=== PATIENT | female | born 1970 | race African-American/Black ===

== ENCOUNTER 2016-05-15 19:44 | Emergency (ER) | payer OTHER ==
[2016-05-15 20:13] VITALS: BP 110/70; PULSE 74; TEMP 97.8; BMI 28.3
[2016-05-15] MEDS ORDERED: SODIUM CHLORIDE 1,000 ML IV STA (20:30)
[2016-05-15 20:38] LABS: URINE APPEARANCE CLEAR; URINE BILIRUBIN NEGATIVE (NEGATIVE); URINE BLOOD NEGATIVE (NEGATIVE); URINE COLOR STRAW; URINE GLUCOSE (UA) NEGATIVE (NEGATIVE); URINE KETONE NEGATIVE (NEGATIVE); URINE NITRITE NEGATIVE (NEGATIVE); URINE PROTEIN NEGATIVE (NEGATIVE); URINE UROBILINOGEN NEGATIVE E.U./dl (0.2-1.0)
[2016-05-15 20:39] LABS: URINE LEUK ESTERASE 2+ (NEGATIVE)
--- NOTE | 2016-05-15 20:39 | PDOC ---
History of Present Illness - General History Source: Patient Exam Limitations: No Limitations - History of Present Illness Initial Comments: 05/15/16 21:04 The patient is a 45 year old female, with no significant past medical history, who presents to the emergency department with intermittent LLQ abdominal pain for the past 4 days. The patient describes the pain as a nonradiating pressure. She states that she started her menstrual period 4 days ago and initially thought her abdominal pain was related. However, she ended her menstrual period 2 days ago but the abdominal pain has persisted. She then thought the abdominal pain was related to gas pains, so she took a laxative 2 days ago but the pain has persisted. The patient denies fever, chills, nausea, vomiting, diarrhea or dysuria. She reports normal bowel movements. Patients daughter is with her in the ED. LMP: 05/11/2016 Allergies: None reported. Past Surgical History: . Social History: Non smoker. Denies alcohol or drug use. PCP: Dr. Moustapha Petit <Juanita Phillips - Last Filed: 05/15/16 23:21> - General History Source: Patient Exam Limitations: No Limitations <Devon Perez - Last Filed: 05/16/16 00:28> - General Chief Complaint: Pain Stated Complaint: ABD PAIN Time Seen by Provider: 05/15/16 20:19 Past History <Juanita Phillips - Last Filed: 05/15/16 23:21> - Psycho/Social/Smoking Cessation Hx Suicidal Ideation: No Smoking History: Never smoked <Devon Perez - Last Filed: 05/16/16 00:28> - Past Medical History Allergies/Adverse Reactions: Allergies Allergy/AdvReac Type Severity Reaction Status Date / Time No Known Allergies Allergy Verified 05/15/16 20:09 Home Medications: Ambulatory Orders NK [No Known Home Medication] 05/15/16 Review of Systems - Review of Systems Able to Perform ROS?: Yes Comments:: 05/15/16 20:54 GENERAL/CONSTITUTIONAL: No fever or chills. No weakness. HEAD, EYES, EARS, NOSE AND THROAT: No change in vision. No ear pain or discharge. No sore throat. CARDIOVASCULAR: No chest pain or shortness of breath. RESPIRATORY: No cough, wheezing, or hemoptysis. GASTROINTESTINAL: +Abdominal pain. No nausea, vomiting, diarrhea or constipation. GENITOURINARY: No dysuria, frequency, or change in urination. MUSCULOSKELETAL: No joint or muscle swelling or pain. No neck or back pain. SKIN: No rash. NEUROLOGIC: No headache, vertigo, loss of consciousness, or change in strength/ sensation. ENDOCRINE: No increased thirst. No abnormal weight change. HEMATOLOGIC/LYMPHATIC: No anemia, easy bleeding, or history of blood clots. ALLERGIC/IMMUNOLOGIC: No hives or skin allergy. <Juanita Phillips - Last Filed: 05/15/16 23:21> *Physical Exam - Vital Signs Last Vital Signs Temp Pulse Resp BP Pulse Ox 97.8 F 74 18 110/70 100 05/15/16 20:12 05/15/16 20:12 05/15/16 20:12 05/15/16 20:12 05/15/16 20:12 - Physical Exam Comments: 05/15/16 20:52 GENERAL: Awake, alert, and fully oriented, in no acute distress. HEAD: No signs of trauma. EYES: PERRLA, EOMI, sclera anicteric, conjunctiva clear. ENT: Auricles normal inspection, hearing grossly normal, nares patent, oropharynx clear without exudates. Moist mucosa. NECK: Normal ROM, supple, no lymphadenopathy, JVD, or masses. LUNGS: Breath sounds equal, clear to auscultation bilaterally. No wheezes, and no crackles. HEART: Regular rate and rhythm, normal S1 and S2, no murmurs, rubs or gallops. ABDOMEN: LLQ tenderness on palpation. Soft, normoactive bowel sounds. No guarding, no rebound. No masses. EXTREMITIES: Normal range of motion, no edema. No clubbing or cyanosis. No cords , erythema, or tenderness. NEUROLOGICAL: Cranial nerves II through XII grossly intact. Normal speech, normal gait. SKIN: Warm, dry, normal turgor, no rashes or lesions noted. <Juanita Phillips - Last Filed: 05/15/16 23:21> - Vital Signs Last Vital Signs Temp Pulse Resp BP Pulse Ox 97.8 F 74 18 110/70 100 05/15/16 20:12 05/15/16 20:12 05/15/16 20:12 05/15/16 20:12 05/15/16 20:12 <Devon Perez - Last Filed: 05/16/16 00:28> ED Treatment Course - LABORATORY CBC & Chemistry Diagram: 05/15/16 20:46 05/15/16 20:46 - ADDITIONAL ORDERS Additional order review: Laboratory Results 05/15/16 20:14 Urine Color Straw Urine Appearance Clear Urine pH 6.0 Ur Specific [place] 1.011 Urine Protein Negative Urine Glucose (UA) Negative Urine Ketones Negative Urine Blood Negative Urine Nitrite Negative Urine Bilirubin Negative Urine Urobilinogen Negative Ur Leukocyte Esterase 2+ H Urine RBC 2 Urine WBC 12 Ur Epithelial Cells Moderate Urine Bacteria Rare Urine Mucus Rare Urine HCG, Qual Negative <Juanita Phillips - Last Filed: 05/15/16 23:21> - LABORATORY CBC & Chemistry Diagram: 05/15/16 20:46 05/15/16 20:46 - RADIOLOGY Radiology Studies Ordered: Category Date Time Status ABDOMEN & PELVIS CT WITH CONTR [CT] Stat CT Scan 05/15/16 20:29 Ordered TRANSVAGINAL ULTRASOUND US [US] Stat Ultrasound 05/15/16 20:29 Ordered <Devon Perez - Last Filed: 05/16/16 00:28> Medical Decision Making - Medical Decision Making 05/15/16 23:04 EXAM: US/TRANSVAGINAL ULTRASOUND US Reviewed By: Dr. Julio Cesar Morin IMPRESSION: Small uterine fibroid and right ovarian cyst. No evidence of torsion or acute pathology. EXAM: CT/ABDOMEN & PELVIS CT WITH CONTR Reviewed By: Dr. Julio Cesar Morin IMPRESSION: Cholelithiasis, otherwise normal CT scan of the abdomen and pelvis with no evidence of diverticulitis or acute pathology. <Juanita Phillips - Last Filed: 05/15/16 23:21> - Medical Decision Making 05/15/16 20:37 A portion of this note was documented by scribe services under my direction. I have reviewed the details of the note, within reason, and agree with the documentation with the following case summary and management plan written by me. Patient treated in the ED. Nursing notes are reviewed and incorporated into the medical decision-making. Vital signs reviewed. Peripheral IV access obtained by the nurse, laboratory studies are drawn and sent, reviewed and interpreted by myself. Vital Signs Temp Pulse Resp BP Pulse Ox 97.8 F 74 18 110/70 100 05/15/16 20:12 05/15/16 20:12 05/15/16 20:12 05/15/16 20:12 05/15/16 20:12 45 year old female with no past medical history presents with left lower quadrant pain. The patient has had intermittent lower abdominal pain for one week. She initially started with her menstrual period but her period now resolved. Denies any nausea, vomiting, diarrhea. Patient did take a laxative for what she thought was gassiness, and taken a laxative. However, no fevers no chills. She is quite tender left lower quadrant. Incidentally, yesterday, the patient had eaten some fried chicken and developed some epigastric burning sensation which was relieved with Tums. I suspect that that was gastritis. We'll obtain a CAT scan to rule out diverticulitis and a transvaginal ultrasound to rule out ruptured ovarian cyst. I have very low suspicion for ovarian torsion given presentation. We'll obtain labs and reassess. 05/16/16 00:17 CT scan demonstrated no acute findings. Incidental finding notable was gallstones. The patient was informed of her findings. CBC, BMP 05/15/16 20:46 05/15/16 20:46 CMP Sodium 141 mmol/L (136-145) 05/15/16 20:46 Potassium 3.7 mmol/L (3.5-5.1) 05/15/16 20:46 Chloride 104 mmol/L (98-107) 05/15/16 20:46 Carbon Dioxide 27 mmol/L (21-32) 05/15/16 20:46 Anion Gap 10 (8-16) 05/15/16 20:46 BUN 12 mg/dL (7-18) 05/15/16 20:46 Creatinine 0.8 mg/dL (0.55-1.02) 05/15/16 20:46 Creat Clearance w eGFR > 60 (>60) 05/15/16 20:46 Random Glucose 80 mg/dL (74-106) 05/15/16 20:46 Calcium 8.2 mg/dL (8.5-10.1) L 05/15/16 20:46 Total Bilirubin 0.3 mg/dL (0.2-1.0) 05/15/16 20:46 AST 15 U/L (15-37) 05/15/16 20:46 ALT 16 U/L (12-78) 05/15/16 20:46 Alkaline Phosphatase 79 U/L (45-117) 05/15/16 20:46 Creatine Kinase 146 IU/L (26-192) 05/15/16 20:46 Troponin I < 0.02 ng/ml (0.00-0.05) 05/15/16 20:46 Total Protein 7.3 g/dl (6.4-8.2) 05/15/16 20:46 Albumin 3.5 g/dl (3.4-5.0) 05/15/16 20:46 Lipase 100 U/L (73-393) 05/15/16 20:46 Transvaginal ultrasound shows no torsion, but uterine fibroids, and R sided ovarian cyst. Patient given copies of her results. She reports feeling well and improved. Return precautions given. I suspect her pain was secondary to uterine fibroids. I discussed the physical exam findings, ancillary test results and final diagnoses with the patient. I answered all of the patient's questions. The patient was satisfied with the care received and felt comfortable with the discharge plan and treatment plan. The patient will call their primary care physician within 24 hours to arrange follow-up and will return to the Emergency Department with any new, persistant or worsening symptoms. <Devon Perez - Last Filed: 05/16/16 00:28> *DC/Admit/Observation/Transfer - Attestations Scribe Attestion: 05/15/16 20:52 Documentation prepared by Juanita Phillips, acting as medical information specialist for Devon Perez MD. <Juanita Phillips - Last Filed: 05/15/16 23:21> - Discharge Dispostion Admit: No <Devon Perez - Last Filed: 05/16/16 00:28> Diagnosis at time of Disposition: Fibroids Qualifiers: Uterine leiomyoma location: unspecified location Qualified Code(s): D25.9 - Leiomyoma of uterus, unspecified - Discharge Dispostion Disposition: HOME Condition at time of disposition: Improved - Referrals Referrals: Moustapha Petit MD [Primary Care Provider] - - Patient Instructions Printed Discharge Instructions: DI for Uterine Fibroids, Facts About Fibroids, DI for Ovarian Cyst Additional Instructions: Take 500 mg naproxen every 12 hours as needed for pain. Please take a copy of your ultrasound and CT scan to your doctors and ART HISTORIAN.
[2016-05-15 20:45] LABS: URINE BACTERIA RARE /hpf (NONE SEEN); URINE MUCUS RARE; URINE RBC 2 /hpf (0-3); URINE WBC 12 /hpf (3-5)
[2016-05-15 21:44] LABS: EOSINOPHIL 2.9 % (0-4.5); MCH 30.1 pg (25.7-33.7); MCHC 33.6 g/dl (32.0-36.0); MEAN CELL VOLUME 89.5 fl (80-96); MEAN PLT VOLUME 7.6 fl (7.5-11.1); NEUTROPHILS 49.1 % (42.8-82.8); PLATELET COUNT 290 K/MM3 (134-434); WHITE BLOOD COUNT 8.7 K/mm3 (4.0-10.0)
[2016-05-15 22:08] LABS: ALBUMIN 3.5 g/dl (3.4-5.0); ANION GAP 10 (8-16); BILIRUBIN,TOTAL 0.3 mg/dL (0.2-1.0); CALCIUM 8.2 mg/dL (8.5-10.1); CO2 27 mmol/L (21-32); CREATININE 0.8 mg/dL (0.55-1.02); GLUCOSE,RANDOM 80 mg/dL (74-106); SGOT/AST 15 U/L (15-37); SGPT/ALT 16 U/L (12-78); TOT PROT 7.3 g/dl (6.4-8.2)
[2016-05-15 22:11] LABS: ALK PHOS 79 U/L (45-117); TROPONIN I < 0.02 ng/ml (0.00-0.05)
== END 2016-05-16 00:29 | disposition home or self-care (01) ==
LOC: JER 19:44
PROC: 3E0337Z Introduction of Electrolytic and Water Balance Substance into Peripheral Vein, Percutaneous Approach (ICD-10-PCS; principal; 2016-05-15)
DX: D25.9 Leiomyoma of uterus, unspecified (principal); K80.20 Calculus of gallbladder without cholecystitis without obstruction
CPT/HCPCS: 36415; 74177-TC; 76830-TC; 80053; 81003; 81015; 82550; 83690; 84484; 84703; 85025; 99283-25

== ENCOUNTER 2017-08-01 10:04 | Inpatient (IN) | payer OTHER ==
--- NOTE | 2017-08-01 10:28 | PDOC ---
History of Present Illness - History of Present Illness Initial Comments: 08/01/17 11:01 Patient is a 47F, with no significant PMHx, who presents with nausea and vomiting since 07/30/17. Patient states that on Wednesday night she had [employer] and she began having abdominal cramping, followed by nausea and vomiting. She states that she has been vomiting (4-5x times) since and has not been able to hold anything down. She reports that her LMP was on June 19 but believes she is dominik-menopausal because she has irregular periods. Her last BM was yesterday and reports it as normal. She denies diarrhea, constipation. She denies fevers, chills. Surgical Hx: Social Hx: Denies tobacco use. Social EtOH. <Edith Paris - Last Filed: 08/01/17 12:46> <Lourdes Seals - Last Filed: 08/01/17 14:29> - General Chief Complaint: Nausea/Vomiting Stated Complaint: NAUSEA/VOMITING Time Seen by Provider: 08/01/17 10:18 Past History <Edith Paris - Last Filed: 08/01/17 12:46> - Past Medical History COPD: No - Suicide/Smoking/Psychosocial Hx Smoking History: Never smoked Have you smoked in the past 12 months: No Information on smoking cessation initiated: No Hx Alcohol Use: No Drug/Substance Use Hx: No Substance Use Type: None <Lourdes Seals - Last Filed: 08/01/17 14:29> - Past Medical History Allergies/Adverse Reactions: Allergies Allergy/AdvReac Type Severity Reaction Status Date / Time No Known Allergies Allergy Verified 05/15/16 20:09 Home Medications: Ambulatory Orders NK [No Known Home Medication] 05/15/16 Review of Systems - Review of Systems Comments:: 08/01/17 11:01 GENERAL/CONSTITUTIONAL: No fever or chills. No weakness. HEAD, EYES, EARS, NOSE AND THROAT: No change in vision. No ear pain or discharge. No sore throat. GASTROINTESTINAL: +nausea, +vomiting, no diarrhea or constipation. GENITOURINARY: No dysuria, frequency, or change in urination. CARDIOVASCULAR: No chest pain or shortness of breath. RESPIRATORY: No cough, wheezing, or hemoptysis. MUSCULOSKELETAL: No joint or muscle swelling or pain. No neck or back pain. SKIN: No rash NEUROLOGIC: No headache, vertigo, loss of consciousness, or change in strength/ sensation. ENDOCRINE: No increased thirst. No abnormal weight change. HEMATOLOGIC/LYMPHATIC: No anemia, easy bleeding, or history of blood clots. ALLERGIC/IMMUNOLOGIC: No hives or skin allergy. <Edith Paris - Last Filed: 08/01/17 12:46> *Physical Exam - Vital Signs Last Vital Signs Temp Pulse Resp BP Pulse Ox 98.2 F 82 16 113/76 100 08/01/17 10:10 08/01/17 10:10 08/01/17 10:10 08/01/17 10:10 08/01/17 10:10 - Physical Exam Comments: 08/01/17 11:02 Constitutional: Awake, alert, oriented. No acute distress. Head: Normocephalic. Atraumatic Eyes: PERRL. EOMI. Conjunctivae are not pale. ENT: Mucous membranes are mildy dry. Posterior pharynx without exudates or erythema. Uvula midline. Neck: Supple. Full ROM. No lymphadenopathy. Cardiovascular: Regular rate. Regular rhythm. S1, S2 regular. Distal pulses are 2+ and symmetric. Pulmonary/Chest: No evidence of respiratory distress. Clear to auscultation bilaterally No wheezing, rales or rhonchi. Abdominal: Soft and non-distended. There is no tenderness. No rebound, guarding or rigidity. No organomegaly. No palpable masses. Good bowel sounds. Back: No CVA tenderness. Musculoskeletal: No edema. No cyanosis. No clubbing. Full range of motion in all extremities. Nocalf tenderness. Radial/pedal pulses are intact and 2+ bilaterally Skin: Skin is warm and dry. No petechiae. No purpura. Neurological: Alert and oriented to person, place, and time. Cranial nerves II -XII are grossly intact. Normal speech. Strength is grossly symmetric. No sensory deficits. Psychiatric: Good eye contact. Normal interaction, affect and behavior. <Edith Paris - Last Filed: 08/01/17 12:46> - Vital Signs Last Vital Signs Temp Pulse Resp BP Pulse Ox 98.2 F 82 16 113/76 100 08/01/17 10:10 08/01/17 10:10 08/01/17 10:10 08/01/17 10:10 08/01/17 10:10 <Lourdes Seals - Last Filed: 08/01/17 14:29> ED Treatment Course - LABORATORY CBC & Chemistry Diagram: 08/01/17 10:52 08/01/17 10:52 - RADIOLOGY Radiograph Interpretation: 08/01/17 12:46 EXAM#: TYPE/EXAM: RESULT: [id number] US/GALLBLADDER US HISTORY PROVIDED: Nausea and vomiting. Real time examination of the abdomen demonstrates the following: The gallbladder is normal in size and does contain multiple calculi. There is no evidence of intra or extrahepatic biliary duct dilatation. There is no sonographic evidence of acute cholecystitis. If this is clinically suspected, a follow-up HIDA scan may be warranted. The liver is normal in size and texture with no intrahepatic masses seen. Hepatopedal flow is documented within the main portal vein. The pancreas is normal in size and texture with no pancreatic masses identified. There is no evidence of hydronephrosis or acute abnormalities of the right kidney. There is no evidence of AAA. The IVC is patent. IMPRESSION: Cholelithiasis. Clinical correlation and follow-up recommended. Please see above discussion. Reported By: Julio Cesar Morin MD 08/01/17 1233 <Edith Paris - Last Filed: 08/01/17 12:46> - LABORATORY CBC & Chemistry Diagram: 08/01/17 10:52 08/01/17 10:52 <Lourdes Seals - Last Filed: 08/01/17 14:29> Medical Decision Making - Medical Decision Making 08/01/17 10:48 a/p: 47yo female with n/v since eating Chipotle wednesday night -abd cramping, but no tenderness -suspect viral gastroenteritis vs biliary disease vs gastritis -will check labs, ivf hydration, zofran, pepcid -will monitor and reassess -plan discussed with the patient who agrees with the plan 08/01/17 11:27 bedside ultrasound shows a gallstone poss stuck in the neck - will order official RUQ US pt updated no pain at this time will monitor and reassess 08/01/17 13:06 pt with multiple stones on formal ultrasound no acute jose maria however, persistent n/v despite meds in the ED. will remedicate. discussed that this may be symptomatic cholelithiasis call placed to Dr. Gtz. 08/01/17 13:[address] Gtz who recommends HIDA scan, place in [facility], will see in consult PMD is Dr. Moustapha Petit - call placed to Dr. Bell 08/01/17 14:[address] Bell - accepts pt to service <Lourdes Seals - Last Filed: 08/01/17 14:29> *DC/Admit/Observation/Transfer - Attestations Scribe Attestion: 08/01/17 11:04 Documentation prepared by Edith Paris, acting as medical detailist for Lourdes Seals DO. <Edith Paris - Last Filed: 08/01/17 12:46> - Discharge Dispostion Admit: Yes - Attestations Physician Attestion: 08/01/17 14:29 I, Dr. Lourdes Seals DO, attest that this document has been prepared under my direction and personally reviewed by me in its entirety. I further attest, that it accurately reflects all work, treatment, procedures and medical decision -making performed by me. <Lourdes Seals - Last Filed: 08/01/17 14:29> Diagnosis at time of Disposition: Nausea & vomiting, Cholelithiasis - Discharge Dispostion Condition at time of disposition: Fair - Referrals Referrals: Moustapha Petit MD [Primary Care Provider] - - Patient Instructions - Post Discharge Activity
[2017-08-01] MEDS ORDERED: ONDANSETRON 4 MG/2 ML VIAL IVPUSH ONE (10:35)
[2017-08-01] MEDS ORDERED: SODIUM CHLORIDE 0.9% 1000 ML INFUS.BAG IV ONE (10:35)
[2017-08-01] MEDS ORDERED: FAMOTIDINE 20 MG/50 ML IVPB 20 MG/50 ML MG IVPB ONE (10:35)
[2017-08-01] MEDS ORDERED: ONDANSETRON 4 MG/2 ML VIAL ONE (10:39)
[2017-08-01 11:07] LABS: BASO % 1.6 % (0-2.0); EOS % 3.3 % (0-4.5); HEMATOCRIT 38.2 % (32.4-45.2); HEMOGLOBIN 13.2 GM/dL (10.7-15.3); LYMPH % 39.2 % (8-40); MCH 30.9 pg (25.7-33.7); MCHC 34.4 g/dl (32.0-36.0); MEAN CELL VOLUME 89.8 fl (80-96); MEAN PLT VOLUME 7.6 fl (7.5-11.1); NEUT % 47.9 % (42.8-82.8); PLATELET COUNT 277 K/MM3 (134-434); RBC 4.25 M/mm3 (3.60-5.2); RDW 13.5 % (11.6-15.6); WHITE BLOOD COUNT 7.3 K/mm3 (4.0-10.0)
[2017-08-01 11:35] LABS: ALBUMIN 3.5 g/dl (3.4-5.0); ANION GAP 4 (8-16); BILIRUBIN,TOTAL 0.2 mg/dL (0.2-1.0); BLOOD UREA NITROGEN 13 mg/dL (7-18); CALCIUM 8.4 mg/dL (8.5-10.1); CHLORIDE 108 mmol/L (98-107); CO2 28 mmol/L (21-32); CREATININE 0.8 mg/dL (0.55-1.02); GLUCOSE,RANDOM 100 mg/dL (74-106); LIPASE 132 U/L (73-393); POTASSIUM 3.7 mmol/L (3.5-5.1); SGOT/AST 14 U/L (15-37); SGPT/ALT 20 U/L (12-78); SODIUM 140 mmol/L (136-145); TOT PROT 7.3 g/dl (6.4-8.2)
[2017-08-01 11:37] LABS: ALK PHOS 88 U/L (45-117)
[2017-08-01 12:17] LABS: URINE APPEARANCE CLOUDY; URINE BILIRUBIN NEGATIVE (<2.0 mg/dL); URINE BLOOD 2+ (NEGATIVE); URINE COLOR STRAW; URINE GLUCOSE (UA) NEGATIVE (NEGATIVE); URINE KETONE NEGATIVE (NEGATIVE); URINE NITRITE NEGATIVE (NEGATIVE); URINE PROTEIN NEGATIVE (NEGATIVE); URINE UROBILINOGEN NEGATIVE mg/dL (0.2-1.0)
[2017-08-01 12:22] LABS: URINE LEUK ESTERASE 3+ (NEGATIVE)
[2017-08-01 12:23] LABS: EPI CELLS MODERATE /HPF (FEW)
[2017-08-01 12:51] LABS: HCG,QUALITATIVE URINE NEGATIVE
[2017-08-01] MEDS ORDERED: METOCLOPRAMIDE HCL INJECTION 10 MG/2 ML VIAL IVPUSH ONE (13:04)
[2017-08-01] MEDS ORDERED: METOCLOPRAMIDE HCL INJECTION 10 MG/2 ML VIAL ONE (13:19)
[2017-08-01 16:38] VITALS: BMI 29.7
--- NOTE | 2017-08-01 16:54 | HP ---
Admitting History and Physical - Smoking History Smoking history: Never smoked Have you smoked in the past 12 months: No - Alcohol/Substance Use Hx Alcohol Use: No Home Medications - Allergies Allergies/Adverse Reactions: Allergies Allergy/AdvReac Type Severity Reaction Status Date / Time No Known Allergies Allergy Verified 05/15/16 20:09 - Home Medications Home Medications: Ambulatory Orders NK [No Known Home Medication] 05/15/16 Physical Examination Vital Signs: Vital Signs Temperature 97.9 F 08/01/17 14:57 Pulse Rate 82 08/01/17 14:57 Respiratory Rate 16 08/01/17 15:33 Blood Pressure 105/66 08/01/17 14:57 O2 Sat by Pulse Oximetry (%) 100 08/01/17 15:33 Labs: CBC, BMP 08/01/17 10:52 08/01/17 10:52
[2017-08-02] MEDS ORDERED: ONDANSETRON 4 MG/2 ML VIAL IVPUSH PRN (00:49)
[2017-08-02] MEDS ORDERED: morphine SULFATE 4 MG/ML VIAL IVPUSH PRN (00:49)
[2017-08-02] MEDS: DEXTROSE 5%-0.45% SALINE 1,000 ML IV SCH (08:04)
[2017-08-02] MEDS: HEPARIN NA (PORCINE) 5,000 UNITS/ML 1ML VIAL SQ SCH ×3 (14:19→21:51)
--- NOTE | 2017-08-02 18:04 | CON.GI ---
Consult Consult Specialty:: gi Referred by:: Dr Bell/ Marisabel - History of Present Illness History of Present Illness: 47 y/o F with no known medical history has new onset of epigastric and diffuse abdominal pain nausea and vomiting for the past 3 days. Abdominal ultrasound revealed cholelithiasis. HIDA scan revealed hyperkinetic gallbladder. - History Source History Provided By: Patient - Alcohol/Substance Use Hx Alcohol Use: No - Smoking History Smoking history: Never smoked Have you smoked in the past 12 months: No Home Medications - Allergies Allergies/Adverse Reactions: Allergies Allergy/AdvReac Type Severity Reaction Status Date / Time No Known Allergies Allergy Verified 05/15/16 20:09 - Home Medications Home Medications: Ambulatory Orders NK [No Known Home Medication] 05/15/16 Review of Systems - Review of Systems Constitutional: denies: Fever Eyes: denies: Blurred Vision HENT: denies: Difficult Swallowing Neck: denies: Decreased ROM Cardiovascular: denies: Chest Pain Respiratory: denies: Cough Gastrointestinal: denies: Abdominal Pain Genitourinary: denies: Discharge Physical Exam-GI Vital Signs: Vital Signs Temperature 99.0 F 08/02/17 13:19 Pulse Rate 78 08/02/17 13:19 Respiratory Rate 18 08/02/17 13:19 Blood Pressure 107/62 08/02/17 13:19 O2 Sat by Pulse Oximetry (%) 99 08/01/17 21:00 Constitutional: Yes: Well Nourished Eyes: Yes: Conjunctiva Clear HENT: Yes: Atraumatic Cardiovascular: Yes: Regular Rate and Rhythm Respiratory: Yes: CTA Bilaterally ...Palpate: Yes: Soft. No: Firm/Rigid, Guarding, Hepatomegaly, Mass, Pulsatile Mass, Splenomegaly, Tenderness Labs: CBC, BMP 08/01/17 10:52 08/01/17 10:52 Problem List - Problems (1) Biliary colic Code(s): K80.50 - CALCULUS OF BILE DUCT W/O CHOLANGITIS OR CHOLECYST W/O OBST (2) Dyskinesia of gallbladder Assessment/Plan: R> patient was made aware results of the HIDA scan and ultrasound. She would was made aware that she may redevelop the symptoms with conservative management. She would like to try conservative management and will undergo surgery when symptoms recur. Made aware to follow-up as hyperkenisia could be due to underlying chronic cholecytitis Code(s): K82.8 - OTHER SPECIFIED DISEASES OF GALLBLADDER
--- NOTE | 2017-08-02 20:11 | CONSULT ---
Consult Consult Specialty:: SURGERY Reason for Consultation:: CHOLELITHIASIS - History of Present Illness Chief Complaint: NAUSEA AND VOMITING History of Present Illness: Patient is a 47F, with no significant PMHx, who presents with nausea and vomiting since 07/30/17. Patient states that on Wednesday night she had Chipot[employer] and she began having abdominal cramping, followed by nausea and vomiting. She states that she has been vomiting (4-5x times) since and has not been able to hold anything down. Abdominal US in ED showed GB with multiple stones but no GB wall thickening. Patient was admitted for observation as she was unable to take anything p.o. HIDA scan with EF today showed patent cystic duct and 90% GB EF. Patient denies having abdominal pain. - History Source History Provided By: Patient Limitations to Obtaining History: No Limitations - Past Surgical History Past Surgical History: Yes: - Alcohol/Substance Use Hx Alcohol Use: No - Smoking History Smoking history: Never smoked Have you smoked in the past 12 months: No Home Medications - Allergies Allergies/Adverse Reactions: Allergies Allergy/AdvReac Type Severity Reaction Status Date / Time No Known Allergies Allergy Verified 05/15/16 20:09 - Home Medications Home Medications: Ambulatory Orders NK [No Known Home Medication] 05/15/16 Review of Systems - Review of Systems Constitutional: reports: No Symptoms Eyes: reports: No Symptoms Neck: reports: No Symptoms Cardiovascular: reports: No Symptoms Respiratory: reports: No Symptoms Gastrointestinal: reports: Nausea (RESOLVED AT TIME OF EXAMINATION) Physical Exam Vital Signs: Vital Signs Temperature 99.0 F 08/02/17 13:19 Pulse Rate 78 08/02/17 13:19 Respiratory Rate 18 08/02/17 13:19 Blood Pressure 107/62 08/02/17 13:19 O2 Sat by Pulse Oximetry (%) 99 08/01/17 21:00 Constitutional: Yes: Well Nourished Eyes: Yes: Conjunctiva Clear HENT: Yes: Normocephalic Neck: Yes: Supple Cardiovascular: Yes: Regular Rate and Rhythm Respiratory: Yes: CTA Bilaterally Gastrointestinal: Yes: Soft, Tenderness (NO RUQ TENDERNESS) ...Rectal Exam: Yes: Deferred Renal/: Yes: WNL Extremities: Yes: WNL Neurological: Yes: Alert, Oriented Labs: CBC, BMP 08/01/17 10:52 08/01/17 10:52 Imaging - Results Ultrasound: Report Reviewed, Image Reviewed Other: Report Reviewed, Image Reviewed (HIDA SCAN WITH GB EF) Problem List - Problems (1) Cholelithiasis Assessment/Plan: POSSIBLE ASYMPTOMATIC CHOLELITHIASIS N & V may not be caused by gallstones No intervention necessary at this time Advised further GI W/U i.e., EGD &/or colonoscopy F/U as OP Code(s): K80.20 - CALCULUS OF GALLBLADDER W/O CHOLECYSTITIS W/O OBSTRUCTION (2) Nausea & vomiting Assessment/Plan: RESOLVED, UNLIKELY CAUSED BY GALLSTONES RESUME DIET D/C PLANNING Code(s): R11.2 - NAUSEA WITH VOMITING, UNSPECIFIED
--- NOTE | 2017-08-02 22:08 | PN ---
Progress Note, Physician - Current Medication List Current Medications: Active Medications Heparin Sodium (Porcine) (Heparin -) 5,000 unit SQ BID [facility] Last Admin: 08/02/17 21:51 Dose: 5,000 unit Dextrose/Sodium Chloride (D5-1/2ns -) 1,000 mls @ 75 mls/hr IV ASDIR [facility] Last Admin: 08/02/17 08:04 Dose: 75 mls/hr Metoclopramide HCl (Reglan -) 5 mg PO TIDAC [facility] Morphine Sulfate (Morphine Sulfate) 2 mg IVPUSH Q6H PRN PRN Reason: PAIN LEVEL 6-10 Ondansetron HCl (Zofran Injection) 4 mg IVPUSH Q6H PRN PRN Reason: NAUSEA - Objective Vital Signs: Vital Signs Temperature 99.0 F 08/02/17 13:19 Pulse Rate 78 08/02/17 13:19 Respiratory Rate 18 08/02/17 13:19 Blood Pressure 107/62 08/02/17 13:19 O2 Sat by Pulse Oximetry (%) 99 08/01/17 21:00 Labs: CBC, BMP 08/01/17 10:52 08/01/17 10:52
[2017-08-03] MEDS: DEXTROSE 5%-0.45% SALINE 1,000 ML IV SCH (02:14)
[2017-08-03 05:50] VITALS: PULSE 70
[2017-08-03] MEDS: METOCLOPRAMIDE HCL 10 MG TABLET (FP) PO SCH ×2 (06:29→14:29)
[2017-08-03 07:51] LABS: BASO % 0.7 % (0-2.0); HEMATOCRIT 39.2 % (32.4-45.2); HEMOGLOBIN 13.5 GM/dL (10.7-15.3); LYMPH % 37.9 % (8-40); MCH 30.9 pg (25.7-33.7); MCHC 34.4 g/dl (32.0-36.0); MEAN CELL VOLUME 89.9 fl (80-96); MEAN PLT VOLUME 7.5 fl (7.5-11.1); MONO % 7.8 % (3.8-10.2); NEUT % 50.6 % (42.8-82.8); PLATELET COUNT 277 K/MM3 (134-434); RBC 4.36 M/mm3 (3.60-5.2); RDW 13.6 % (11.6-15.6); WHITE BLOOD COUNT 7.5 K/mm3 (4.0-10.0)
[2017-08-03 08:35] LABS: CHLORIDE 109 mmol/L (98-107); POTASSIUM 3.6 mmol/L (3.5-5.1); SODIUM 140 mmol/L (136-145)
[2017-08-03 08:45] LABS: ALBUMIN 3.5 g/dl (3.4-5.0); ALK PHOS 73 U/L (45-117); ANION GAP 7 (8-16); BILIRUBIN,TOTAL 0.3 mg/dL (0.2-1.0); BLOOD UREA NITROGEN 9 mg/dL (7-18); CALCIUM 8.5 mg/dL (8.5-10.1); CO2 24 mmol/L (21-32); CREATININE 0.7 mg/dL (0.55-1.02); GLUCOSE,RANDOM 97 mg/dL (74-106); SGOT/AST 14 U/L (15-37); SGPT/ALT 16 U/L (12-78); TOT PROT 7.2 g/dl (6.4-8.2)
[2017-08-03] MEDS: HEPARIN NA (PORCINE) 5,000 UNITS/ML 1ML VIAL SQ SCH (09:54)
--- NOTE | 2017-08-03 13:51 | DS ---
Physical Examination Vital Signs: Vital Signs Temperature 98.7 F 08/03/17 05:48 Pulse Rate 70 08/03/17 05:48 Respiratory Rate 18 08/03/17 05:48 Blood Pressure 103/52 08/03/17 05:48 O2 Sat by Pulse Oximetry (%) 98 08/02/17 21:00 Labs: CBC, BMP 08/03/17 06:35 08/03/17 06:35 Discharge Summary Reason For Visit: NAUSEA/VOMITING, CHOLELITHIASIS Current Active Problems Biliary colic (Acute) Cholelithiasis (Acute) Dyskinesia of gallbladder (Acute) Nausea & vomiting (Acute) Condition: Good - Instructions Diet, Activity, Other Instructions: Regular diet See Dr Petit in 1 week Referrals: Moustapha Petit MD [Primary Care Provider] - Disposition: HOME - Home Medications Comprehensive Discharge Medication List: Ambulatory Orders NK [No Known Home Medication] 05/15/16
[2017-08-03 14:17] VITALS: BP 107/63; TEMP 98.4
== END 2017-08-03 15:24 | disposition home or self-care (01) | DRG 446 ==
LOC: JER 10:04 → JERBED 14:29 → J6S 16:14 → OBSVTOIN 08-02 00:46
PROVIDERS: ADMIT Internal Medicine; ATTEND Internal Medicine
DX: K80.20 Calculus of gallbladder without cholecystitis without obstruction (principal); R11.2 Nausea with vomiting, unspecified; K82.8 Other specified diseases of gallbladder
CPT/HCPCS: 36415; 76705-TC; 78227-TC; 80053; 81003; 81015; 82550; 82553; 83690; 83735; 84484; 84703; 85025; 99284-25; A9537; G0378; J1644; J7030

== ENCOUNTER 2018-11-01 18:35 | Emergency (ER) | payer OTHER ==
[2018-11-01 18:45] VITALS: BP 100/55; PULSE 94; TEMP 98.3; BMI 28.3
--- NOTE | 2018-11-01 18:45 | PDOC ---
Rapid Medical Evaluation Chief Complaint: Pain Medical Evaluation: Allergies Allergy/AdvReac Type Severity Reaction Status Date / Time No Known Allergies Allergy Verified 11/01/18 18:41 11/01/18 18:44 I have performed a brief in-person evaluation of this patient. The patient presents with a chief complaint of: dysuria since yesterday. No flank pain, n/v/f/c. Sxs similar to prior UTI Pertinent physical exam findings:Stable and well kathleen I have ordered the following:ua/cx, upred The patient will proceed to the ED for further evaluation Discharge Disposition - Diagnosis Dysuria - Referrals - Patient Instructions - Post Discharge Activity
[2018-11-01] MEDS ORDERED: ACETAMINOPHEN 500 MG TABLET (FP) PO ONE (19:19)
--- NOTE | 2018-11-01 19:25 | PDOC ---
History of Present Illness - General Chief Complaint: Pain Stated Complaint: ABD PAIN Time Seen by Provider: 11/01/18 18:45 History Source: Patient Exam Limitations: No Limitations - History of Present Illness Travel History: No Initial Comments: 11/01/18 19:20 HISTORY OF PRESENT ILLNESS: 48-year-old woman denies medical history presents emergency department for evaluation of dysuria, lower back pain and urinary hesitancy for 2 days. Patient reports she's had some similar symptoms in the past when she had urinary tract infections. Patient is 48 years old and her last menstrual period was in July of this year. Patient reports having unprotected sex with one male partner for the past 3 years. She denies any MANAGER CONTRACT symptoms. She denies rectal bleeding or constipation or diarrhea. No recent travel or sick contacts. PAST MEDICAL HISTORY: Denies past medical history SURGICAL HISTORY: Denies ALLERGIES: No known drug allergies REVIEW OF SYSTEMS General/Constitutional: Denies fever or chills. Denies weakness, weight change. HEENT: Denies change in vision. Denies ear pain or discharge. Denies sore throat. Cardiovascular: Denies chest pain or shortness of breath. Respiratory: Denies cough, wheezing, or hemoptysis. Gastrointestinal: Denies nausea, vomiting, diarrhea or constipation. Denies rectal bleeding. Genitourinary: see HPI Musculoskeletal: Denies joint or muscle swelling or pain. Denies neck or back pain. Skin and breasts: Denies rash or easy bruising. Neurologic: Denies headache, vertigo, loss of consciousness, or loss of sensation. Psychiatric: Denies depression or anxiety. Endocrine: Denies increased thirst. Denies abnormal weight change. Hematologic/Lymphatic: Denies anemia, easy bleeding, or history of blood clots. Allergic/Immunologic: Denies hives or skin allergy. Denies latex allergy. PHYSICAL EXAM General Appearance: Well-appearing, appropriately dressed. No apparent distress , no intoxication. Respiratory/Chest: Lungs CTAB. No shortness of breath, chest tenderness, respiratory distress, accessory muscle use. No crackles, rales, rhonchi, stridor , wheezing, dullness Cardiovascular: RRR. S1, S2. No JVD, murmur, bradycardia, tachycardia. Gastrointestinal/Abdominal: Normal bowel sounds. Abdomen soft, non-distended. No tenderness or rebound tenderness. No organomegaly, pulsatile mass, guarding, hernia, hepatomegaly, splenomegaly. Musculoskeletal/Extremities: Normal inspection. FROM of all extremities, normal capillary refill. Pelvis Stable. No CVA tenderness. No tenderness to extremities, pedal edema, swelling, erythema or deformity. Integumentary: Appropriate color, dry, warm. 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 Fully oriented, alert. Appropriate mood/affect. Motor strength 5/5. No appreciable EOM palsy, facial droop or sensory deficit. Past History - Past Medical History Allergies/Adverse Reactions: Allergies Allergy/AdvReac Type Severity Reaction Status Date / Time No Known Allergies Allergy Verified 11/01/18 18:41 Home Medications: Ambulatory Orders Cephalexin Monohydrate [Keflex -] 500 mg PO BID #20 capsule 11/01/18 COPD: No - Suicide/Smoking/Psychosocial Hx Smoking History: Never smoked Have you smoked in the past 12 months: No Information on smoking cessation initiated: No Hx Alcohol Use: No Drug/Substance Use Hx: No Substance Use Type: None *Physical Exam - Vital Signs Last Vital Signs Temp Pulse Resp BP Pulse Ox 98.3 F 94 H 17 100/55 L 96 11/01/18 18:41 11/01/18 18:41 11/01/18 18:41 11/01/18 18:41 11/01/18 18:41 Medical Decision Making - Medical Decision Making 11/01/18 19:24 A/P: 48-year-old woman with urinary symptoms for 2 days Most likely uncomplicated cystitis Urine testing, urinalysis, urine culture, Tylenol 975 mg orally now Reassess 11/01/18 20:10 Urine is negative. Urinalysis notable for 2+ protein, 3+ blood, 3+ leuk esterase, 404 WBCs on high- power field. Findings consistent with urinary tract infection. I will discharge the patient home with prescription for Keflex 500 mg twice a day for the next 10 days. . I discussed the physical exam findings, ancillary test results and final diagnoses with the patient. I answered all of the patient's questions. The patient was satisfied with the care received and felt comfortable with the discharge plan and treatment plan. The patient will call their primary care physician within 24 hours to arrange follow-up and will return to the Emergency Department with any new, persistent or worsening symptoms. *DC/Admit/Observation/Transfer Diagnosis at time of Disposition: Cystitis - Discharge Dispostion Disposition: HOME Condition at time of disposition: Stable Decision to Admit order: No - Prescriptions Prescriptions: Cephalexin Monohydrate [Keflex -] 500 mg PO BID #20 capsule - Referrals Referrals: Yaa Rod MD [Primary Care Provider] - - Patient Instructions Additional Instructions: Rest, drink lots of fluids: Teas, water, soups Avoid contact with others until fevers and symptoms resolved Lots of handwashing and good hygiene Continue [id number] medications for symptomatic relief Tylenol or Motrin for fever and pain Continue all of antibiotics until completed Followup with private physician in one week for repeat urinalysis/reevaluation Return to emergency department for worsened symptoms, fevers, dehydration - Post Discharge Activity
[2018-11-01] MEDS ORDERED: ACETAMINOPHEN 325 MG TABLET (FP) ONE (19:33)
[2018-11-01 19:50] LABS: EPI CELLS 1.3 /HPF (0-5/HPF); HYALINE CASTS 4 /lpf (0-8); PH,URINE 5.5 (5.0-8.0); URINE APPEARANCE CLOUDY; URINE BACTERIA 2559.8 /hpf (NEGATIVE); URINE BILIRUBIN NEGATIVE (NEGATIVE); URINE COLOR YELLOW; URINE GLUCOSE (UA) NEGATIVE (NEGATIVE); URINE KETONE NEGATIVE (NEGATIVE); URINE LEUK ESTERASE 3+ (NEGATIVE); URINE NITRITE NEGATIVE (NEGATIVE); URINE PROTEIN 2+ (NEGATIVE); URINE RBC 67 /hpf (0-4); URINE WBC 404 /hpf (0-5)
== END 2018-11-01 20:14 | disposition home or self-care (01) ==
LOC: JERFT 18:35
DX: N30.00 Acute cystitis without hematuria (principal)
CPT/HCPCS: 81003; 84703; 87086; 87186; 99283-25

== ENCOUNTER 2019-05-16 07:46 | Emergency (ER) | payer OTHER ==
[2019-05-16 08:14] VITALS: BP 99/78; PULSE 80; TEMP 98.2; BMI 28.3
[2019-05-16] MEDS ORDERED: ALBUTEROL SO4 2.5/IPRATROPIUM 0.5 INH SOL 3 ML VIAL.NEB. NEB ONE ×3 (08:34→09:40)
--- NOTE | 2019-05-16 10:09 | PDOC ---
History of Present Illness - General Chief Complaint: Chest Pain Stated Complaint: CHEST PAIN Time Seen by Provider: 05/16/19 08:15 History Source: Patient Exam Limitations: No Limitations - History of Present Illness Initial Comments: 05/16/19 10:04 48-year-old female history of asthma presents complaining of subjective fever, dry cough, chest discomfort when coughing and nasal congestion since yesterday. Patient denies sick contacts, recent travel, nausea, vomiting, shortness of breath, abdominal pain or any other symptoms. Has not taken any meds for her symptoms. ROS: GENERAL/CONSTITUTIONAL: Subjective fever, denies chills, weakness, dizziness HEAD, EYES, EARS, NOSE AND THROAT: Nasal congestion, no changes in vision, No ear pain or discharge, No sore throat CARDIOVASCULAR: No chest pain RESPIRATORY: Dry cough, denies shortness of breath GASTROINTESTINAL: No pain, nausea, vomiting, diarrhea or constipation GENITOURINARY: No dysuria MUSCULOSKELETAL: No neck or back pain SKIN: No rash NEUROLOGIC: No headache, vertigo, loss of consciousness, or loss of sensation PE: GENERAL: well-appearing, NAD HEAD: NCAT EYES: Pupils equal, round and reactive to light, sclera anicteric, conjunctiva clear ENT: pharynx: no erythema, no exudate, uvula midline NECK: supple CHEST: nontender RESP: Minimal wheezing throughout lung nevarez CARDIO: rrr, no m/g/r ABD: +BS, soft, nontender, non distended BACK: no midline spinal ttp, no CVAT EXTREMITIES: Normal range of motion, no edema NEUROLOGICAL: Normal speech, normal gait SKIN: Warm, Dry Past History - Past Medical History Allergies/Adverse Reactions: Allergies Allergy/AdvReac Type Severity Reaction Status Date / Time No Known Allergies Allergy Verified 11/01/18 18:41 Home Medications: Ambulatory Orders NK [No Known Home Medication] 05/16/19 COPD: No - Immunization History Immunization Up to Date: Yes - Psycho Social/Smoking Cessation Hx Smoking History: Never smoked Have you smoked in the past 12 months: No Hx Alcohol Use: No Drug/Substance Use Hx: No Substance Use Type: None *Physical Exam - Vital Signs Last Vital Signs Temp Pulse Resp BP Pulse Ox 98.2 F 80 16 99/78 99 05/16/19 08:07 05/16/19 08:07 05/16/19 08:07 05/16/19 08:07 05/16/19 08:07 ED Treatment Course - Medications Given in the ED: ED Medications Discontinued Medications Generic Name Dose Route Start Last Admin Trade Name Zackery PRN Reason Stop Dose Admin Albuterol/Ipratropium 1 amp 05/16/19 08:34 05/16/19 08:45 Duoneb - NEB 05/16/19 08:35 1 amp ONCE ONE Administration Albuterol/Ipratropium 1 amp 05/16/19 09:40 05/16/19 09:50 Duoneb - NEB 05/16/19 09:41 1 amp ONCE ONE Administration Medical Decision Making - Medical Decision Making 05/16/19 10:06 48-year-old female with history of asthma complaining of dry cough, subjective fever, nasal congestion since yesterday. Denies any other symptoms. Feels better after DuoNeb's Clear lungs Supportive care instructions given Return precautions discussed Discharge - Discharge Information Problems reviewed: Yes Clinical Impression/Diagnosis: Viral upper respiratory illness Condition: Stable Disposition: HOME - Admission No - Follow up/Referral Referrals: Yaa Rod MD [Primary Care Provider] - - Patient Discharge Instructions Additional Instructions: Rest, remain hydrated, take ibuprofen 600 mg every 6 hours as needed Follow-up with your doctor this week Return to ER if symptoms worsen - Post Discharge Activity
== END 2019-05-16 10:20 | disposition home or self-care (01) ==
LOC: JER 07:46 → JERFT 07:46
PROC: 3E0F7GC Introduction of Other Therapeutic Substance into Respiratory Tract, Via Natural or Artificial Opening (ICD-10-PCS; principal; 2019-05-16)
PROC: 3E0F7GC Introduction of Other Therapeutic Substance into Respiratory Tract, Via Natural or Artificial Opening (ICD-10-PCS; 2019-05-16)
DX: J06.9 Acute upper respiratory infection, unspecified (principal); B97.89 Other viral agents as the cause of diseases classified elsewhere; J45.909 Unspecified asthma, uncomplicated
CPT/HCPCS: 99281-25

== ENCOUNTER 2020-12-25 20:57 | Observation (INO) | payer OTHER ==
[2020-12-25] MEDS ORDERED: MECLIZINE HCL 25 MG TABLET (FP) PO ONE (21:49)
[2020-12-25] MEDS ORDERED: MECLIZINE HCL 12.5 MG TABLET ONE (22:01)
[2020-12-25 22:23] LABS: BASO % 1.1 % (0-2.0); EOS % 2.8 % (0-4.5); HEMATOCRIT 38.4 % (32.4-45.2); HEMOGLOBIN 13.3 GM/dL (10.7-15.3); LYMPH % 42.1 % (8-40); MCH 30.4 pg (25.7-33.7); MCHC 34.7 g/dl (32.0-36.0); MEAN CELL VOLUME 87.5 fl (80-96); MEAN PLT VOLUME 7.6 fl (7.5-11.1); MONO % 6.5 % (3.8-10.2); NEUT % 47.5 % (42.8-82.8); PLATELET COUNT 335 10^3/uL (134-434); RBC 4.39 M/mm3 (3.60-5.2); RDW 13.3 % (11.6-15.6); WHITE BLOOD COUNT 8.4 K/mm3 (4.0-10.0)
[2020-12-25 22:32] LABS: INR 0.93 (0.83-1.09); PROTHROMBIN TIME (PATIENT) 11.5 SEC (9.7-13.0)
[2020-12-25 22:35] LABS: ACTIVATED PTT 33.6 SECONDS (25.2-36.5)
[2020-12-25 22:45] LABS: CHLORIDE 109 mmol/L (98-107); SODIUM 142 mmol/L (136-145)
[2020-12-25 22:47] LABS: ALBUMIN 3.5 g/dl (3.4-5.0); ANION GAP 4 MMOL/L (8-16); BLOOD UREA NITROGEN 10.6 mg/dL (7-18); CALCIUM 8.6 mg/dL (8.5-10.1); CO2 29 mmol/L (21-32); GLUCOSE,RANDOM 108 mg/dL (74-106); MAGNESIUM 2.6 mg/dL (1.8-2.4)
[2020-12-25 22:50] LABS: SGPT/ALT 17 U/L (13-61)
[2020-12-25 22:51] LABS: CREATININE 0.8 mg/dL (0.55-1.3); SGOT/AST 16 U/L (15-37)
[2020-12-25 22:52] LABS: BILIRUBIN,TOTAL 0.2 mg/dL (0.2-1); TOT PROT 7.7 g/dl (6.4-8.2)
[2020-12-25 22:53] LABS: ALK PHOS 104 U/L (45-117)
[2020-12-26] MEDS ORDERED: MECLIZINE HCL 25 MG TABLET (FP) PO PRN (01:38)
[2020-12-26] MEDS ORDERED: DEXTROSE 5%-0.45% SALINE 1,000 ML IV SCH (01:45)
[2020-12-26 06:27] LABS: BASO % 1.6 % (0-2.0); EOS % 4.1 % (0-4.5); HEMATOCRIT 35.8 % (32.4-45.2); HEMOGLOBIN 12.6 GM/dL (10.7-15.3); MCH 30.9 pg (25.7-33.7); MCHC 35.2 g/dl (32.0-36.0); MEAN CELL VOLUME 87.8 fl (80-96); MEAN PLT VOLUME 7.3 fl (7.5-11.1); MONO % 5.3 % (3.8-10.2); PLATELET COUNT 272 10^3/uL (134-434); RBC 4.08 M/mm3 (3.60-5.2); RDW 13.3 % (11.6-15.6); WHITE BLOOD COUNT 6.7 K/mm3 (4.0-10.0)
[2020-12-26] MEDS ORDERED: MECLIZINE HCL 12.5 MG TABLET ONE (06:33)
[2020-12-26 06:47] LABS: CALCIUM 8.5 mg/dL (8.5-10.1)
[2020-12-26 06:48] LABS: ALBUMIN 3.3 g/dl (3.4-5.0); BLOOD UREA NITROGEN 9.8 mg/dL (7-18)
[2020-12-26 06:51] LABS: BILIRUBIN,TOTAL 0.3 mg/dL (0.2-1); CREATININE 0.7 mg/dL (0.55-1.3)
[2020-12-26] MEDS ORDERED: ENOXAPARIN NA (PORCINE) 40 MG/0.4 ML DISP.SYRIN SQ SCH (10:00)
[2020-12-26] MEDS ORDERED: POTASSIUM CHLORIDE TABS 20 MEQ TABLET.ER (FP) PO ONE (13:47)
[2020-12-26] MEDS ORDERED: POTASSIUM CHLORIDE TABS 10 MEQ TABLET.ER (FP) ONE (13:56)
[2020-12-26 16:30] LABS: MAGNESIUM 2.3 mg/dL (1.8-2.4)
[2020-12-26 16:33] LABS: PHOSPHOROUS 4.1 mg/dL (2.5-4.9)
[2020-12-26 17:23] LABS: EPI CELLS 13 /uL (0-25.1); HYALINE CASTS 0 /uL (0-3.1); PH,URINE 6.5 (5.0-8.0); URINE APPEARANCE CLEAR; URINE BACTERIA 468 /uL (0-1359); URINE BILIRUBIN NEGATIVE (NEGATIVE); URINE COLOR YELLOW; URINE GLUCOSE (UA) NEGATIVE (NEGATIVE); URINE KETONE NEGATIVE (NEGATIVE); URINE LEUK ESTERASE 1+ (NEGATIVE); URINE NITRITE NEGATIVE (NEGATIVE); URINE PROTEIN NEGATIVE (NEGATIVE); URINE RBC 5 /uL (0-23.9); URINE UROBILINOGEN 0.2 mg/dL (0.2-1.0); URINE WBC 16 /uL (0-25.8)
[2020-12-26] MEDS: DEXTROSE 5%-0.45% SALINE 1,000 ML IV SCH (22:41)
[2020-12-26] MEDS: MECLIZINE HCL 25 MG TABLET (FP) PO SCH (22:52)
[2020-12-27 02:50] VITALS: BMI 32.1
[2020-12-27] MEDS: MECLIZINE HCL 25 MG TABLET (FP) PO SCH ×2 (06:41→14:58)
[2020-12-27] MEDS: DEXTROSE 5%-0.45% SALINE 1,000 ML IV SCH (07:29)
[2020-12-27 07:52] LABS: HEMATOCRIT 37.3 % (32.4-45.2); HEMOGLOBIN 13.2 GM/dL (10.7-15.3); MCH 30.8 pg (25.7-33.7); MCHC 35.3 g/dl (32.0-36.0); MEAN CELL VOLUME 87.4 fl (80-96); MEAN PLT VOLUME 7.4 fl (7.5-11.1); PLATELET COUNT 281 10^3/uL (134-434); RBC 4.27 M/mm3 (3.60-5.2); RDW 13.7 % (11.6-15.6); WHITE BLOOD COUNT 5.9 K/mm3 (4.0-10.0)
[2020-12-27 08:05] LABS: CALCIUM 8.5 mg/dL (8.5-10.1)
[2020-12-27 08:06] LABS: ALBUMIN 3.2 g/dl (3.4-5.0); BLOOD UREA NITROGEN 12.2 mg/dL (7-18)
[2020-12-27 08:09] LABS: CREATININE 0.8 mg/dL (0.55-1.3)
[2020-12-27 08:10] LABS: BILIRUBIN,TOTAL 0.3 mg/dL (0.2-1)
[2020-12-27 08:11] LABS: TOT PROT 7.1 g/dl (6.4-8.2)
[2020-12-27 08:39] VITALS: BP 127/76; PULSE 82; TEMP 98
[2020-12-27] MEDS ORDERED: ENOXAPARIN NA (PORCINE) 40 MG/0.4 ML DISP.SYRIN SQ SCH (10:00)
[2020-12-27 11:15] LABS: ANISOCYTOSIS 1+; MACROCYTOSIS 0; PLATELET ESTIMATE NORMAL; TEAR DROP CELLS 1+
== END 2020-12-27 19:34 | disposition home or self-care (01) ==
LOC: JER 20:57 → UNDOADMOB 12-26 01:08 → JERBED 12-26 01:08 → OBSVTOIN 12-26 01:38 → INTOOBSV 12-26 01:38 → JERBED 12-26 19:44 → J6S 12-26 19:44 → JERBED 12-27 08:35
PROVIDERS: ADMIT Internal Medicine; ATTEND Internal Medicine
PROC: 3E013GC Introduction of Other Therapeutic Substance into Subcutaneous Tissue, Percutaneous Approach (ICD-10-PCS; principal; 2020-12-27)
DX: R94.31 Abnormal electrocardiogram [ECG] [EKG] (principal); R42 Dizziness and giddiness; E87.6 Hypokalemia; E66.9 Obesity, unspecified; Z68.32 Body mass index [BMI] 32.0-32.9, adult; I45.81 Long QT syndrome; J06.9 Acute upper respiratory infection, unspecified
CPT/HCPCS: 36415; 70450-TC; 70551-TC; 71046-TC-FY; 80053; 80061; 81003; 82550; 82553; 83036; 83735; 84100; 84443; 84484; 85025; 85610; 85730; 93005; 93010; 93306-TC; 93880-TC; 99285-25; C9803; G0378; U0003; U0005

== ENCOUNTER 2021-02-20 01:03 | Observation (INO) | payer OTHER ==
[2021-02-20 02:15] VITALS: BMI 29.2
[2021-02-20] MEDS ORDERED: SODIUM CHLORIDE 1,000 ML IV STA (02:37)
[2021-02-20] MEDS ORDERED: ONDANSETRON 4 MG/2 ML VIAL IVPUSH ONE (02:37)
[2021-02-20] MEDS ORDERED: MAG HYDROX/AL HYDROX/SIMETH -MYLANTA- ORAL SUSPENSION PO ONE (02:37)
[2021-02-20] MEDS ORDERED: ACETAMINOPHEN 325 MG TABLET (FP) PO ONE (02:43)
[2021-02-20] MEDS ORDERED: MAG HYDROX/AL HYDROX/SIMETH 30 ML UNIT-DOSE CUP ONE (02:44)
[2021-02-20] MEDS ORDERED: ONDANSETRON 4 MG/2 ML VIAL ONE (02:44)
[2021-02-20] MEDS ORDERED: ACETAMINOPHEN 325 MG TABLET (FP) ONE (03:13)
[2021-02-20 03:25] LABS: BASO % 2.8 % (0-2.0); EOS % 2.5 % (0-4.5); HEMATOCRIT 40.2 % (32.4-45.2); HEMOGLOBIN 13.9 GM/dL (10.7-15.3); LYMPH % 37.1 % (8-40); MCH 30.1 pg (25.7-33.7); MCHC 34.6 g/dl (32.0-36.0); MEAN PLT VOLUME 7.7 fl (7.5-11.1); MONO % 6.7 % (3.8-10.2); NEUT % 50.9 % (42.8-82.8); PLATELET COUNT 292 10^3/uL (134-434); RBC 4.62 M/mm3 (3.60-5.2); RDW 13.5 % (11.6-15.6); WHITE BLOOD COUNT 9.3 K/mm3 (4.0-10.0)
[2021-02-20 03:45] LABS: CHLORIDE 105 mmol/L (98-107); SODIUM 138 mmol/L (136-145)
[2021-02-20 03:47] LABS: ALBUMIN 3.7 g/dl (3.4-5.0); ANION GAP 6 MMOL/L (8-16); CALCIUM 8.6 mg/dL (8.5-10.1); CO2 28 mmol/L (21-32); GLUCOSE,RANDOM 96 mg/dL (74-106); LIPASE 93 U/L (73-393)
[2021-02-20 03:50] LABS: SGOT/AST 40 U/L (15-37); SGPT/ALT 20 U/L (13-61)
[2021-02-20 03:51] LABS: BILIRUBIN,TOTAL 0.4 mg/dL (0.2-1); TOT PROT 8.6 g/dl (6.4-8.2)
[2021-02-20 03:53] LABS: ALK PHOS 112 U/L (45-117)
[2021-02-20 05:19] LABS: CALCIUM 8.5 mg/dL (8.5-10.1)
[2021-02-20 05:20] LABS: BLOOD UREA NITROGEN 12.3 mg/dL (7-18)
[2021-02-20 05:23] LABS: CREATININE 0.9 mg/dL (0.55-1.3)
[2021-02-20] MEDS ORDERED: POTASSIUM CHLORIDE TABS 20 MEQ TABLET.ER (FP) PO ONE (11:12)
[2021-02-20] MEDS: PANTOPRAZOLE 40 MG TABLET PO SCH (12:39)
[2021-02-20] MEDS: ASPIRIN 81 MG CHEWABLE TABLETS PO SCH (12:40)
[2021-02-20] MEDS ORDERED: morphine SULFATE 4 MG/ML VIAL IVPUSH PRN (20:52)
[2021-02-21 04:46] VITALS: TEMP 97.8
[2021-02-21 06:28] VITALS: BP 106/62; PULSE 69
[2021-02-21 07:22] LABS: BASO % 1.2 % (0-2.0); EOS % 3.7 % (0-4.5); HEMATOCRIT 36.9 % (32.4-45.2); LYMPH % 49.4 % (8-40); MCH 30.3 pg (25.7-33.7); MCHC 35.2 g/dl (32.0-36.0); MEAN CELL VOLUME 86.1 fl (80-96); MEAN PLT VOLUME 7.7 fl (7.5-11.1); MONO % 7.8 % (3.8-10.2); NEUT % 37.9 % (42.8-82.8); PLATELET COUNT 238 10^3/uL (134-434); RBC 4.28 M/mm3 (3.60-5.2); RDW 13.5 % (11.6-15.6); WHITE BLOOD COUNT 5.7 K/mm3 (4.0-10.0)
[2021-02-21 07:43] LABS: CHLORIDE 107 mmol/L (98-107); SODIUM 138 mmol/L (136-145)
[2021-02-21 07:44] LABS: CALCIUM 8.5 mg/dL (8.5-10.1)
[2021-02-21 07:46] LABS: ALBUMIN 3.2 g/dl (3.4-5.0); CO2 26 mmol/L (21-32); GLUCOSE,RANDOM 87 mg/dL (74-106)
[2021-02-21 07:48] LABS: CREATININE 0.9 mg/dL (0.55-1.3); SGOT/AST 40 U/L (15-37)
[2021-02-21 07:50] LABS: ALK PHOS 88 U/L (45-117); BILIRUBIN,TOTAL 0.5 mg/dL (0.2-1); SGPT/ALT 19 U/L (13-61); TOT PROT 7.5 g/dl (6.4-8.2)
[2021-02-21 07:53] LABS: ANION GAP 5 MMOL/L (8-16)
[2021-02-21 08:58] LABS: CHOLESTEROL 140 mg/dL (50-200); HDL CHOLESTEROL 52 mg/dL (40-60); LDL CHOLESTEROL (ONLY DFH) 69 mg/dl (5-100); TRIGLYCERIDES 97 mg/dL (0-150)
[2021-02-21] MEDS: PANTOPRAZOLE 40 MG TABLET PO SCH (09:32)
[2021-02-21] MEDS: ASPIRIN 81 MG CHEWABLE TABLETS PO SCH (09:32)
[2021-02-21] MEDS ORDERED: ENOXAPARIN NA (PORCINE) 40 MG/0.4 ML DISP.SYRIN SQ SCH (10:00)
[2021-02-21 10:25] LABS: CALCIUM 8.9 mg/dL (8.5-10.1); CHLORIDE 106 mmol/L (98-107); SODIUM 140 mmol/L (136-145)
[2021-02-21 10:26] LABS: ANION GAP 6 MMOL/L (8-16); BLOOD UREA NITROGEN 8.5 mg/dL (7-18); CO2 28 mmol/L (21-32); GLUCOSE,RANDOM 85 mg/dL (74-106)
[2021-02-21 10:30] LABS: CREATININE 0.9 mg/dL (0.55-1.3)
[2021-02-21] MEDS ORDERED: PIPERACILLIN/TAZOB 3.375 GM 3.375 GM in DEXTROSE 5%-WATER - 50 ML IVPB SCH ×3 (11:00→18:00)
[2021-02-21] MEDS ORDERED: DEXTROSE 5%-WATER - 50 ML IVPB ONE (11:15)
[2021-02-21] MEDS ORDERED: PIPERACILLIN/TAZOBACTAM 3.375 GM VIAL IVPB ONE (11:15)
== END 2021-02-21 17:34 | disposition home or self-care (01) ==
LOC: JER 01:03 → JERBED 07:00 → INTOOBSV 07:00 → UNDOADMOB 07:00 → JERBED 09:51 → J4W 09:51 → JERBED 12:18 → J4W 12:18
PROVIDERS: ADMIT Internal Medicine; ATTEND Internal Medicine
PROC: 3E033NZ Introduction of Analgesics, Hypnotics, Sedatives into Peripheral Vein, Percutaneous Approach (ICD-10-PCS; principal; 2021-02-20)
PROC: 3E033GC Introduction of Other Therapeutic Substance into Peripheral Vein, Percutaneous Approach (ICD-10-PCS; 2021-02-20)
PROC: 3E03329 Introduction of Other Anti-infective into Peripheral Vein, Percutaneous Approach (ICD-10-PCS; 2021-02-20)
PROC: 3E0337Z Introduction of Electrolytic and Water Balance Substance into Peripheral Vein, Percutaneous Approach (ICD-10-PCS; 2021-02-20)
DX: K80.50 Calculus of bile duct without cholangitis or cholecystitis without obstruction (principal); I10 Essential (primary) hypertension; R10.13 Epigastric pain; R11.2 Nausea with vomiting, unspecified
CPT/HCPCS: 36415; 71045-TC-FY; 76700-TC; 80048; 80053; 80061; 82550; 82553; 83690; 84484; 85025; 93005; 93010; 96361; 96365; 96375; 99285-25; C9803; G0378; U0003; U0005

== ENCOUNTER 2021-05-02 04:33 | Day surgery (SDC) | payer OTHER ==
[2021-05-01 09:12] VITALS: BMI 31.4
[2021-05-02] MEDS ORDERED: SUCCINYLCHOLINE CHLORIDE 200 MG/10 ML SYRINGE ONE (07:26)
[2021-05-02] MEDS ORDERED: fentaNYL CITRATE 250 MCG/5 ML VIAL ONE (07:27)
[2021-05-02] MEDS ORDERED: PROPOFOL 20 ML ONE ×2 (07:27)
[2021-05-02] MEDS ORDERED: ROCURONIUM BROMIDE 50 MG/5 ML SYRINGE ONE (07:27)
[2021-05-02] MEDS ORDERED: MIDAZOLAM HCL 2 MG/2 ML SINGLE DOSE VIAL ONE (07:28)
[2021-05-02] MEDS ORDERED: LIDOCAINE HCL/PF 2% SDV 5ML VIAL ONE (07:32)
[2021-05-02] MEDS ORDERED: ceFAZolin SODIUM 1 GM VIAL ONE (07:32)
[2021-05-02] MEDS ORDERED: KETAMINE HCL 200 MG/20 ML VIAL ONE (07:34)
[2021-05-02] MEDS ORDERED: DEXMEDETOMIDINE HCL 200 MCG/2 ML IVPB ONE (07:35)
[2021-05-02] MEDS ORDERED: ceFAZolin SODIUM 1 GM VIAL IVPB ONE (08:30)
[2021-05-02] MEDS ORDERED: SUGAMMADEX SODIUM 200 MG/2 ML VIAL ONE (08:59)
[2021-05-02] MEDS ORDERED: BUPIVACAINE HCL/PF 0.5% (5 MG/ML) 30 ML VIAL IJ ONE (09:30)
[2021-05-02] MEDS ORDERED: ONDANSETRON 4 MG/2 ML VIAL IVPUSH PRN (10:53)
[2021-05-02] MEDS ORDERED: oxyCODONE HCL 5 MG TABLET PO PRN ×2 (10:53)
[2021-05-02] MEDS ORDERED: oxyCODONE HCL 5 MG TABLET ONE (12:26)
[2021-05-02] MEDS ORDERED: oxyCODONE HCL 5 MG TABLET PO ONE (12:31)
[2021-05-02 13:14] VITALS: TEMP 97.3
[2021-05-02 14:55] VITALS: BP 98/54; PULSE 88
== END 2021-05-02 15:05 | disposition home or self-care (01) ==
LOC: JASU-SURG 04:33
PROVIDERS: ATTEND Surgery
PROC: 0FT44ZZ Resection of Gallbladder, Percutaneous Endoscopic Approach (ICD-10-PCS; principal; 2021-05-02 08:00)
DX: K80.10 Calculus of gallbladder with chronic cholecystitis without obstruction (principal)
CPT/HCPCS: 81025; 88304-TC; 94760

== ENCOUNTER 2023-08-02 07:54 | Emergency (ER) | payer OTHER ==
[2023-08-02 08:06] VITALS: RESP 18; BMI 28.3
[2023-08-02] MEDS ORDERED: ACETAMINOPHEN INJECTION 100 ML IVPB ONE (09:46)
[2023-08-02] MEDS: ACETAMINOPHEN 1000 MG/100 ML BAG IVPB ONE (09:52)
[2023-08-02 10:01] LABS: BASO % 0.9 % (0-2.0); EOS % 0.8 % (0-4.5); HEMATOCRIT 39.9 % (32.4-45.2); HEMOGLOBIN 13.7 GM/dL (10.7-15.3); LYMPH % 31.6 % (8-40); MCH 30.1 pg (25.7-33.7); MCHC 34.2 g/dl (32.0-36.0); MEAN CELL VOLUME 87.9 fl (80-96); MEAN PLT VOLUME 8.3 fl (7.5-11.1); MONO % 5.3 % (3.8-10.2); NEUT % 61.4 % (42.8-82.8); PLATELET COUNT 346 10^3/uL (134-434); RBC 4.54 M/mm3 (3.60-5.2); RDW 14.2 % (11.6-15.6); WHITE BLOOD COUNT 8.3 K/mm3 (4.0-10.0)
[2023-08-02 10:09] LABS: INR 1.07 (0.83-1.09); PROTHROMBIN TIME (PATIENT) 12.4 SEC (9.7-13.0)
[2023-08-02 10:12] LABS: ACTIVATED PTT 34.3 SECONDS (25.2-36.5)
[2023-08-02 10:29] LABS: POTASSIUM 5.6 mmol/L (3.5-5.1)
[2023-08-02 10:30] LABS: CALCIUM 9.3 mg/dL (8.5-10.1)
[2023-08-02 10:31] LABS: ALBUMIN 3.6 g/dl (3.4-5.0); BLOOD UREA NITROGEN 13.1 mg/dL (7-18)
[2023-08-02 10:35] LABS: BILIRUBIN,TOTAL 0.4 mg/dL (0.2-1); TOT PROT 8.1 g/dl (6.4-8.2)
[2023-08-02 12:57] VITALS: BP 137/68; PULSE 75; TEMP 98.6
== END 2023-08-02 12:59 | disposition home or self-care (01) ==
LOC: JER 07:54
PROC: 3E033NZ Introduction of Analgesics, Hypnotics, Sedatives into Peripheral Vein, Percutaneous Approach (ICD-10-PCS; principal; 2023-08-02)
DX: R07.89 Other chest pain (principal); M54.2 Cervicalgia; M25.512 Pain in left shoulder; V49.40XA Driver injured in collision with unspecified motor vehicles in traffic accident, initial encounter; Y92.410 Unspecified street and highway as the place of occurrence of the external cause
CPT/HCPCS: 36415; 71046-TC-FY; 80053; 84484; 85025; 85610; 85730; 93005; 93010; 99285-25; J0131